=== PATIENT | male | born 1975 | race Two or more races ===

== ENCOUNTER 2016-08-29 23:14 | Emergency (ER) | payer OTHER ==
[~2016-08-29] VITALS: Ht 177.8 cm; Wt 95.5 kg
[~2016-08-29 23:14] MED LIST: ANUSOL HC,ANUCO25 MG PR; ANUSOL-HC21 GM PR; AUGMENTIN875 MG PO; NICOTINE PATCH1 EAC2 TD; OXYCODONE HCL5 MG PO; PERCOCET 5/31 TABLET PO; STOOL SOFTENER100 M1 PO; ULTRAM50 MG PO
[2016-08-29 23:31] LABS: HEMATOCRIT 39.5 % (38.0-50.0); MCH 28.4 PG (29.0-34.0); MCHC 34.2 G/DL (30.0-36.0); MEAN PLAT.VOLUME 11.2 uM^3 (9.0-12.4); PLATELET COUNT 197 K/uL (156-360); RBC DIS.WIDTH-CV 12.6 % (11.8-14.6); RBC DIS.WIDTH-SD 37.3 % (39-53); RED BLOOD COUNT 4.76 M/uL (4.00-5.50); WHITE BLOOD COUNT 7.6 K/uL (4.1-10.2)
[2016-08-29 23:41] LABS: CHLORIDE 108 mEq/L (99-109); POTASSIUM 3.6 mEq/L (3.7-5.4); SODIUM 142 mEq/L (136-147)
[2016-08-29 23:43] LABS: GLUCOSE 110 mg/dL (70-99)
[2016-08-29 23:44] LABS: ANION GAP 12 MEQ/L (2-14)
[2016-08-29 23:45] LABS: TOTAL BILIRUBIN 0.5 mg/dL (0.0-1.0)
[2016-08-29 23:46] LABS: ALKALINE PHOSPHATASE 60 IU/L (3-129)
[2016-08-29 23:47] LABS: GFR ESTIMATE (CALCULATED) > 59 mL/min/
[2016-08-29 23:48] LABS: UREA NITROGEN (BUN) 12 mg/dL (9-23)
[2016-08-30] MEDS ORDERED: AMOX TR-K CLV1 EAC4 PO (00:37)
[2016-08-30] MEDS ORDERED: OXYCODONE HCL5 MG PO (00:37)
[2016-08-30 02:32] LABS: BILIRUBIN NEGATIVE; BLOOD NEGATIVE; COLOR YELLOW ((YELLOW)); GLUCOSE (STRIP) NEGATIVE; KETONES NEGATIVE; LEUKOCYTES NEGATIVE; NITRITE NEGATIVE; PH, URINE 6.5 (5-8); PROTEIN (STRIP) NEGATIVE; SPECIFIC GRAVITY 1.019 (1.000-1.030); UROBILINOGEN 0.2 MG/DL (0.2-1.0)
[2016-08-30 02:37] LABS: ADD MIUA? NO; UCUL ADDED? NO
[2016-08-30] MEDS ORDERED: PERCOCET 5/31 TABLET PO (03:29)
[2016-08-30 03:36] VITALS: BP 120/80
== END 2016-08-30 03:36 | disposition home or self-care (01) ==
LOC: RME 23:14 → EME 23:14 → RME 08-30 03:36
DX: K80.20 Calculus of gallbladder without cholecystitis without obstruction (principal); Z87.442 Personal history of urinary calculi; F17.200 Nicotine dependence, unspecified, uncomplicated
CPT/HCPCS: 76705; 80053; 81003; 85027; 99281; 99284; J1170; J1885

== ENCOUNTER 2016-09-05 05:55 | Emergency (ER) | payer OTHER ==
[~2016-09-05] VITALS: Ht 177.8 cm; Wt 94.2 kg
[~2016-09-05 05:55] MED LIST changes: +AMOX TR-K CLV1 EAC4 PO
[2016-09-05 06:15] LABS: HEMATOCRIT 39.4 % (38.0-50.0); MCH 28.5 PG (29.0-34.0); MCV 81.4 FL (86-99); MEAN PLAT.VOLUME 11.1 uM^3 (9.0-12.4); PLATELET COUNT 192 K/uL (156-360); RBC DIS.WIDTH-CV 12.7 % (11.8-14.6); RBC DIS.WIDTH-SD 36.8 % (39-53); RED BLOOD COUNT 4.84 M/uL (4.00-5.50); WHITE BLOOD COUNT 5.8 K/uL (4.1-10.2)
[2016-09-05 06:23] LABS: CHLORIDE 108 mEq/L (99-109); POTASSIUM 3.9 mEq/L (3.7-5.4); SODIUM 141 mEq/L (136-147)
[2016-09-05 06:25] LABS: GLUCOSE 94 mg/dL (70-99)
[2016-09-05 06:27] LABS: ANION GAP 10 MEQ/L (2-14); TOTAL BILIRUBIN 0.5 mg/dL (0.0-1.0)
[2016-09-05 06:29] LABS: ALKALINE PHOSPHATASE 64 IU/L (3-129); GFR ESTIMATE (CALCULATED) > 59 mL/min/
[2016-09-05 06:30] LABS: UREA NITROGEN (BUN) 10 mg/dL (9-23)
[2016-09-05 06:31] LABS: DIRECT BILIRUBIN 0.2 mg/dL (0.0-0.3)
[2016-09-05 06:32] LABS: LIPASE 13 U/L (1.0-51.0)
[2016-09-05 07:20] LABS: BILIRUBIN NEGATIVE; BLOOD NEGATIVE; COLOR YELLOW ((YELLOW)); GLUCOSE (STRIP) NEGATIVE; KETONES NEGATIVE; LEUKOCYTES NEGATIVE; NITRITE NEGATIVE; PROTEIN (STRIP) NEGATIVE; SPECIFIC GRAVITY 1.028 (1.000-1.030); UROBILINOGEN 0.2 MG/DL (0.2-1.0)
[2016-09-05 07:21] LABS: ADD MIUA? NO; UCUL ADDED? NO
[2016-09-05] MEDS ORDERED: BENTYL20 MG PO (10:26)
[2016-09-05] MEDS ORDERED: ZOFRAN ODT4 MG PO (10:26)
[2016-09-05] MEDS ORDERED: SLEEP AID25 M1 PO (10:26)
[2016-09-05 10:45] VITALS: BP 132/76
== END 2016-09-05 10:46 | disposition home or self-care (01) ==
LOC: EME 05:55
DX: R10.11 Right upper quadrant pain (principal); R10.13 Epigastric pain; K59.00 Constipation, unspecified; K80.20 Calculus of gallbladder without cholecystitis without obstruction; R11.2 Nausea with vomiting, unspecified; F17.200 Nicotine dependence, unspecified, uncomplicated; Z87.442 Personal history of urinary calculi
CPT/HCPCS: 74020; 76705; 80053; 81003; 82248; 83690; 85027; 99281; 99284

== ENCOUNTER 2016-09-13 10:19 | Day surgery (SDC) | payer OTHER ==
[~2016-09-13] VITALS: Ht 177.8 cm; Wt 91.6 kg
[~2016-09-13 10:19] MED LIST changes: +BENTYL20 MG PO; +SLEEP AID25 M1 PO; +ZOFRAN ODT4 MG PO
[2016-09-13 10:48] VITALS: BP 124/79
[2016-09-13 16:03] VITALS: BP 108/66
[2016-09-13 17:00] VITALS: BP 115/62
[2016-09-13 19:00] VITALS: BP 138/77
[2016-09-13 21:04] VITALS: BP 131/70
== END 2016-09-13 21:13 | disposition home or self-care (01) ==
LOC: SDC 10:19 → EDSTATUS 13:19 → 2SOUTH 13:19 → SDC 13:20
PROC: 0FT44ZZ Resection of Gallbladder, Percutaneous Endoscopic Approach (ICD-10-PCS; principal; 2016-09-13)
DX: K80.10 Calculus of gallbladder with chronic cholecystitis without obstruction (principal); F17.200 Nicotine dependence, unspecified, uncomplicated
CPT/HCPCS: 88304; J1170; J1885; J2270; J2405; J2710; J2765; J3010